=== PATIENT | male | born 1955 | race Caucasian/White ===

== ENCOUNTER → 2020-03-30 11:06 | Outpatient (CLI) | payer MEDICARE, SELFPAY ==
--- NOTE | 2020-03-30 11:18 | RAD_ITS ---
STUDY: X-RAY - LUMBAR SPINE REASON FOR EXAM: Male, 64 years old. Lumbar radiculopathy TECHNIQUE: 3 view(s) of the lumbar spine were obtained. COMPARISON: None FINDINGS: No definite acute abnormality. 1.2 cm anterolisthesis of L3 on L4 apparently related to bilateral pars defects. Otherwise normal alignment. Normal lordosis. No scoliosis. Multilevel degenerative disc disease, severe at L3-L4 and moderate to severe at L4-L5. No compression fractures. RAD/Lumbar Spine 2 or 3 Views IMPRESSION: Multilevel degenerative changes. Prominent anterolisthesis of L3 on L4 with bilateral pars defects. Electronically Signed: Willie Chaudhary MD at 18:59 EDT , Service support ,
--- NOTE | 2020-03-30 11:25 | RAD_ITS ---
STUDY: X-RAY - LEFT ANKLE REASON FOR EXAM: Male, 64 years old. LEFT ankle pain, Hx of fusion with hardware removal TECHNIQUE: 3 view(s) of the ankle. COMPARISON: None. FINDINGS: No acute abnormality. Extensive postsurgical changes including fusion between the tibia, talus, and distal fibula. Scattered flecks of metal scattered throughout the surgical site on previous orthopedic screws. Moderate lateral soft tissue swelling. RAD/Ankle min 3 Views IMPRESSION: No acute fracture or dislocation. Extensive postsurgical changes. Electronically Signed: Willie Chaudhary MD at 18:57 EDT , Service support ,
== END ==
PROVIDERS: PCP Family Medicine; Referring Provider Family Medicine; Visit Provider Family Medicine
DX: M25.572 Pain in left ankle and joints of left foot (principal); M54.16 Radiculopathy, lumbar region
CPT/HCPCS: 72100; 73610